=== PATIENT | female | born 1960 | race Caucasian/White ===

== ENCOUNTER 2018-11-18 11:32 | Observation (INO) | payer BC ==
[2018-11-18] MEDS ORDERED: GELATIN SIZE 100 SPONGE (15:28)
[2018-11-18] MEDS ORDERED: FENTAnyl 50 MCG/ML VIAL (15:49)
[2018-11-18] MEDS ORDERED: LIDOCAINE 2% (SDV) 5 ML INJ (15:56)
[2018-11-18] MEDS ORDERED: SUCCINYLCHOLINE CHLORIDE 100 MG/5 ML SYG IV (15:56)
[2018-11-18] MEDS ORDERED: PROPOFOL 20 ML (15:56)
[2018-11-18] MEDS ORDERED: CEFAZOLIN 1 GM INJ (15:56)
[2018-11-18] MEDS ORDERED: DEXAMETHASONE 4 MG/ML 5 ML INJ (15:57)
[2018-11-18] MEDS ORDERED: ONDANSETRON 4 MG INJ (15:58)
[2018-11-18] MEDS: LIDOCAINE 1%/EPI 30 ML INJ (16:01)
[2018-11-18] MEDS ORDERED: morphine 10 MG INJ (16:04)
[2018-11-18] MEDS: THROMBIN 5000 UNIT (RECOTHROM) VIAL (18:19)
[2018-11-18] MEDS: FENTAnyl 50 MCG/ML VIAL IV (19:17)
[2018-11-18] MEDS ORDERED: DIPHENHYDRAMINE 50 MG INJ IV (19:30)
[2018-11-18] MEDS ORDERED: MEPERIDINE 25 MG INJ IV (19:30)
[2018-11-18] MEDS ORDERED: METOCLOPRAMIDE 10 MG INJ IV (19:30)
[2018-11-18] MEDS ORDERED: EPHEDrine 25 MG/5 ML SYG IV (19:30)
[2018-11-18] MEDS ORDERED: OXYCODONE/ACETAMINOPHEN (5/325) TAB PO ×2 (19:30)
[2018-11-18] MEDS ORDERED: ACETAMINOPHEN 325 MG TAB PO (19:30)
[2018-11-18] MEDS ORDERED: hydrALAzine 20 MG INJ IV ×2 (19:30→23:30)
[2018-11-18] MEDS ORDERED: ONDANSETRON 4 MG INJ IV ×3 (19:30→20:30)
[2018-11-18] MEDS ORDERED: ALBUTEROL 0.083% (NEB) 2.5 MG/3 ML AMP HHN (19:30)
[2018-11-18] MEDS ORDERED: LABETALOL HCL 20MG INJ IV (19:30)
[2018-11-18] MEDS ORDERED: HYDROmorphONE 1 MG/5 ML IV SYRINGE IV ×3 (19:30)
[2018-11-18] MEDS ORDERED: ALBUMIN HUMAN 5% 250 ML IV (19:30)
[2018-11-18] MEDS ORDERED: FENTAnyl 50 MCG/ML VIAL IV ×2 (19:30)
[2018-11-18] MEDS: SOD CHLORIDE 0.9% 1,000 ML IV (20:21)
[2018-11-18] MEDS ORDERED: morphine 2 MG INJ IV (20:30)
[2018-11-18] MEDS ORDERED: HYDROCODONE/APAP (5/325) TAB PO (20:30)
[2018-11-18] MEDS ORDERED: DOCUSATE SODIUM 100 MG CAP PO (20:30)
[2018-11-18] MEDS ORDERED: BISACODYL (EC) 5 MG TAB PO (20:30)
[2018-11-18] MEDS ORDERED: NACL 0.9% 3 ML SYG IV (20:30)
[2018-11-18] MEDS: HYDROCODONE/APAP (5/325) TAB PO (20:49)
[2018-11-18] MEDS: D5W-0.45 NACL + KCL 20 MEQ 1,000 ML IV (20:49)
[2018-11-18] MEDS: CALCIUM CARBONATE 500 MG CHEW TAB PO (23:10)
[2018-11-18 23:12] LABS: ADD MAN DIFF? NO
[2018-11-18 23:13] LABS: BASOPHILS % 0.1 % (0.0-2.0); HEMATOCRIT 39.5 % (37.0-47.0); HEMOGLOBIN 13.2 g/dl (12.0-16.0); LYMPHOCYTES # 0.9 10^3/ul (0.8-2.9); MEAN CORPUSCULAR HEMOGLOBIN 29.4 pg (29.0-33.0); MEAN CORPUSCULAR HGB CONC 33.4 g/dl (32.0-37.0); MEAN PLATELET VOLUME 9.9 fl (7.4-10.4); MONOCYTE # 0.1 10^3/ul (0.3-0.9); MONOCYTES % 0.8 % (0.0-11.0); NEUTROPHIL # 11.7 10^3/ul (1.6-7.5); NEUTROPHILS % 91.7 % (39.0-77.0); PLATELET COUNT 295 10^3/UL (140-415); RED BLOOD COUNT 4.49 10^6/ul (4.20-5.40)
[2018-11-18 23:13] LABS: WHITE BLOOD COUNT 12.7 10^3/ul (4.8-10.8)
[2018-11-18 23:33] LABS: ALANINE AMINOTRANSFERASE 66 IU/L (13-69); ALBUMIN 4.3 g/dl (3.3-4.9); ALKALINE PHOSPHATASE 98 IU/L (42-121); ANION GAP 7 (5-13); ASPARTATE AMINO TRANSFERASE 47 IU/L (15-46); BILIRUBIN,INDIRECT 0.4 mg/dl (0-1.1); BILIRUBIN,TOTAL 0.4 mg/dl (0.2-1.3); BLOOD UREA NITROGEN 14 mg/dl (7-20); CALCIUM 8.8 mg/dl (8.4-10.2); CARBON DIOXIDE 29 mmol/L (21-31); CHLORIDE 101 mmol/L (97-110); CREATININE 0.67 mg/dl (0.44-1.00); Estimated GFR > 60 mL/min (>60); GLUCOSE 133 mg/dl (70-220); POTASSIUM 4.1 mmol/L (3.5-5.1); SODIUM 137 mmol/L (135-144); TOTAL PROTEIN 7.6 g/dl (6.1-8.1)
[2018-11-19 00:48] LABS: PARATHYROID HORMONE 13.7 pg/ml (24.0-73.0)
[2018-11-19] MEDS: ACETAMINOPHEN 325 MG TAB PO ×2 (03:03→11:45)
[2018-11-19] MEDS: LEVOTHYROXINE 75 MCG TAB PO (05:27)
[2018-11-19] MEDS: D5W-0.45 NACL + KCL 20 MEQ 1,000 ML IV (05:29)
[2018-11-19 06:12] LABS: ADD MAN DIFF? NO
[2018-11-19 06:16] LABS: BASOPHILS % 0.1 % (0.0-2.0); HEMATOCRIT 39.3 % (37.0-47.0); HEMOGLOBIN 13.1 g/dl (12.0-16.0); LYMPHOCYTES # 1.2 10^3/ul (0.8-2.9); LYMPHOCYTES % 11.1 % (15.0-51.0); MEAN CORPUSCULAR HEMOGLOBIN 29.2 pg (29.0-33.0); MEAN CORPUSCULAR HGB CONC 33.3 g/dl (32.0-37.0); MEAN CORPUSCULAR VOLUME 87.5 fl (82.0-101.0); MEAN PLATELET VOLUME 10.3 fl (7.4-10.4); MONOCYTE # 0.4 10^3/ul (0.3-0.9); MONOCYTES % 3.6 % (0.0-11.0); NEUTROPHIL # 9.4 10^3/ul (1.6-7.5); NEUTROPHILS % 84.8 % (39.0-77.0); PLATELET COUNT 320 10^3/UL (140-415); RED BLOOD COUNT 4.49 10^6/ul (4.20-5.40)
[2018-11-19 06:16] LABS: WHITE BLOOD COUNT 11.1 10^3/ul (4.8-10.8)
[2018-11-19 06:46] LABS: ALANINE AMINOTRANSFERASE 98 IU/L (13-69); ALBUMIN 4.2 g/dl (3.3-4.9); ALBUMIN/GLOBULIN RATIO 1.31; ALKALINE PHOSPHATASE 84 IU/L (42-121); ANION GAP 9 (5-13); ASPARTATE AMINO TRANSFERASE 85 IU/L (15-46); BILIRUBIN,INDIRECT 0.5 mg/dl (0-1.1); BILIRUBIN,TOTAL 0.5 mg/dl (0.2-1.3); BLOOD UREA NITROGEN 12 mg/dl (7-20); CALCIUM 9.3 mg/dl (8.4-10.2); CARBON DIOXIDE 29 mmol/L (21-31); CHLORIDE 102 mmol/L (97-110); CREATININE 0.59 mg/dl (0.44-1.00); Estimated GFR > 60 mL/min (>60); GLUCOSE 129 mg/dl (70-220); MAGNESIUM 1.9 mg/dl (1.7-2.5); POTASSIUM 4.5 mmol/L (3.5-5.1); SODIUM 140 mmol/L (135-144); TOTAL PROTEIN 7.4 g/dl (6.1-8.1)
[2018-11-19 07:07] LABS: IONIZED CALCIUM 1.1 mmol/L (1.1-1.4)
[2018-11-19 07:15] LABS: HEMOGLOBIN A1C 5.5 % (0-5.9)
[2018-11-19] MEDS: CALCIUM CARBONATE 500 MG CHEW TAB PO (08:39)
== END 2018-11-19 12:55 | disposition home or self-care (01) ==
LOC: SDS 11:32 → 2NE 19:21
PROVIDERS: Family Medicine
DX: C73 Malignant neoplasm of thyroid gland (principal); E66.9 Obesity, unspecified; Z68.30 Body mass index [BMI] 30.0-30.9, adult
CPT/HCPCS: 60240; 80053; 82306; 82330; 83036; 83735; 83970; 85025; 88307; G0378